=== PATIENT | female | born 1960 | race Caucasian/White ===

== ENCOUNTER 2017-07-30 17:20 | Emergency (ER) | payer OTHER ==
[~2017-07-30] VITALS: Ht 157.5 cm; Wt 72.6 kg
[~2017-07-30 17:20] MED LIST: ADVAIR 250-501 EACH INH; BUPROPION HYDR150 M1 PO; BUPROPION XL300 M1 PO; CARBIDOPA-LEVO1 EAC7 PO; CRESTOR40 MG PO; DILAUDID2 MG PO; DULOXETINE30 MG PO; DULOXETINE60 MG PO; ESCITALOPRAM OX20 MG PO; FENOFIBRIC ACI135 MG PO; FLUTICASON0.05 MG/A2 NASB; FLUTICASONE PRO16 GM NASB; FOLIC ACID 1 MG PO; GLIMEPIRIDE4 M1 PO; LEVSIN0.125 M1 PO; LOSARTAN POTASS50 M1 PO; LOSARTAN POTASS50 MG PO; METFORMIN ER500 MG PO; METOPROLOL SUC100 M2 PO; METOPROLOL SUC100 MG PO; MODAFINIL200 M1 PO; NORETHINDRONE AC5 MG PO; PERCOCET 325 MG1 TA2 PO; PHENERGAN12.5 M1 PO; PROVENTIL0.09 MG/A1 INH; TOPIRAMATE25 MG PO; TOPIRAMATE50 M1 PO; TRULICITY1.5 MG/0.5 SC; VICTOZA6 MG/ML SC; VIVELLE-DOT1 EAC2 TOP; ZOFRAN ODT4 M1 SL
--- NOTE | 2017-07-30 19:33 | ULTRASOUND REPORT ---
EXAMINATION: US TRIPLEX LOWER EXTREMITY, RIGHT CLINICAL INFORMATION: Right calf pain and swelling. COMPARISON: None. TECHNIQUE: Color-flow triplex imaging with spectral analysis and compression Doppler were performed on the lower extremity. FINDINGS: Respiratory variation, normal compression and augmented flow are noted throughout the lower extremity. The visualized common femoral vein, superficial femoral vein, profunda femoral vein, popliteal vein and midcalf peroneal and posterior tibial venous segments show no evidence of deep venous thrombosis. There is a collection of fluid in the midcalf which measures at least 8 x 8 x 1 cm. This may correspond to fluid leaking from a Steen's cyst. A 2 x 2.5 x 0.6 cm echogenic focus within this may correspond to synovitis. Alternatively, this could correspond to a hematoma with congealed blood products. IMPRESSION: No evidence of deep venous thrombosis involving the lower extremity. Complex superficial collection in the left midcalf. This appearance is most commonly the result of fluid leaking from a Steen's cyst. Alternatively, this could correspond to a hematoma with a focus of congealed blood products. Infection is unlikely without significant surrounding hyperemia. If this collection does not improve on followup, consider ultrasound-guided aspiration or MRI tibia and fibula with and without contrast for further evaluation.
[2017-07-30 20:32] VITALS: BP 123/75
--- NOTE | 2017-07-30 20:41 | ED UPPER/LOWER EXTREMITY COMPL ---
History of Present Illness General Chief Complaint: Lower Extremity Problems Stated Complaint: SENT BY URGENT CARE FOR U/S TO R/O DVT Source: patient, old records Exam Limitations: no limitations Vital Signs & Intake/Output Vital Signs & Intake/Output Vital Signs Date Time Temp Pulse Resp B/P B/P Pulse O2 O2 Flow FiO2 Mean Ox Delivery Rate 07/30 2032 97.7 68 20 123/75 100 Room Air 07/304 98.9 79 15 145/84 99 Room Air Room Air Allergies Coded Allergies: codeine (Intermediate, NAUSEA 07/30/17) Penicillins (HIVES 07/30/17) quinapril (TONGUE SWELLING 07/30/17) Reconcile Medications Bupropion HCl (Bupropion XL) 300 MG TAB.ER.24H 1 TAB PO DAILY MENTAL HEALTH ( Reported) Carbidopa/Levodopa (Carbidopa-Levodopa 25-100 Tab) 25 MG-100 MG TABLET 3 TAB PO QHS RLS (Reported) Dulaglutide (Trulicity) (Unknown Strength) PEN.INJCTR (Unknown Dose) SC QSUN DM (Reported) Escitalopram Oxalate 20 MG TABLET 1 TAB PO DAILY MENTAL HEALTH (Reported) Estradiol (Vivelle-Dot) 0.1 MG/24 HOUR PATCH.TDSW 1 VANDANA TOP QWEDSUN HRT ( Reported) Fluticasone Propionate 50 MCG/ACTUATION SPRAY.SUSP 1 SPRAY NASB DAILY ALLERGIES (Reported) Fluticasone/Salmeterol (Advair 250-50 Diskus) 250 MCG-50 MCG/DOSE BLST.W.DEV 1 PUF INH BID ASTHMA (Reported) Glimepiride 4 MG TABLET 1 TAB PO DAILY AC DM (Reported) Hyoscyamine (Levsin) 0.125 MG TABLET 1 TAB PO Q4 PRN abdominal spasms Losartan Potassium 50 MG TABLET 1 TAB PO DAILY BP (Reported) Metoprolol Succinate 100 MG TAB.ER.24H 1 TAB PO DAILY HEART/BP (Reported) Modafinil 200 MG TABLET 1 TAB PO BID DAYTIME SLEEPINESS (Reported) Ondansetron (Zofran Odt) 4 MG TAB.RAPDIS 1 TAB SL TID PRN nausea Topiramate 50 MG TABLET 3 TAB PO DAILY HOT FLASHES (Reported) Triage Note: PT SENT TO ED BY PHYSICIAN ONE FOR R/O DVT TO R CALF AREA. PAIN IS WORSE WITH AMBULATION. REPORTS CRAMPING FEELING X 1 WEEK WITH SHARP PAIN TODAY. Triage Nurses Notes Reviewed? yes Onset: Abrupt Duration: week(s): (1), constant Timing: recent history Severity: moderate Severity Numbers: 5 Pain/Injury Location: Left: Leg. Method of Injury: unknown Modifying Factors: Worsens With: movement. Associated Symptoms: none HPI: 57-year-old female history of hypertension diabetes presents saying for the past 1 week she has had a cramping pain to her right calf. She denies any known injury or trauma however states the pain is worse with ambulation. She denies any hip knee or ankle pain no numbness or tingling. She denies noting any bruising to her skin. No shortness of breath no left leg pain. No modifying factors or associated symptoms otherwise.she denies any swelling to leg. no rashes. Past History Travel History Traveled to [place] past 21 day No Medical History Any Pertinent Medical History? see below for history Cardiovascular: hypertension Endocrine: diabetes Surgical History Surgical History: non-contributory Psychosocial History What is your primary language Moh[place] Tobacco Use: Never used ETOH Use: denies use Illicit Drug Use: denies illicit drug use Family History Hx Contributory? No Review of Systems Review of Systems Constitutional: Reports: see HPI. Comments Review of systems: See HPI, All other systems negative. Constitutional, no chills no fever HEENT: no sore throat no congestion Cardiovascular: No chest pain Skin: no rashes, no change in skin Respiratory: No dyspnea no cough no sputum GI: No nausea no vomiting, Muscle skeletal: No joint pain, no back pain, no neck pain, Neurologic: , no headache Heme/endocrine: No bruising Physical Exam Physical Exam General Appearance: well developed/nourished, no apparent distress, alert, awake Comments: Well-developed well-nourished patient in no apparent distress. HEENT: Atraumatic, extraocular motion intact Neck: Supple, FROM Back: FROM Respiratory: No respiratory distress. Patient speaking in full complete sentences. Upper Extremities: full range of motion Hip/Pelvis: Atraumatic/Stable. FROM. Knee: Atraumatic/stable. FROM. No joint swelling, no effusion. No laxity. No pain with ROM Leg: Atraumatic. NEG HOMANS, Nontender. No edema, 5 out of 5 strength in the lower extremity, normal dorsiflexion of great toe bilaterally, gross sensation is intact, patellar tendon reflex 2+ bilaterally. Ankle/Foot: Atraumatic/stable. Skin intact. FROM. No swelling, no effusion. No laxity on exam Pulses: Normal/equal DP/PT pulses bilaterally. Brisk cap refill Neuro: awake, alert, and oriented to person, place and time. There were no obvious focal neurologic abnormalities. Skin: Warm & dry;No appreciable rash on exposed skin Psych: Mood affect normal, normal memory normal judgment. Progress Differential Diagnosis: DVT, sprain, tendon injury, BAKERS CYST, HEMATOMA Plan of Care: I discussed with the patient at length all of their results. I had an extensive conversation regarding need for close follow up with their primary care physician this week as well as return precautions. I answered all of their questions, they feel comfortable with the plan and follow-up care. Diagnostic Imaging: Viewed by Me: Ultrasound. Discussed w/RAD: Ultrasound. Radiology Impression: PATIENT: ANDRE POND PRESENT AGE: 57 PATIENT ACCOUNT NO: [id number] : 61 LOCATION: [facility] ORDERING PHYSICIAN: James Salcedo MD SERVICE DATE: 07/30/17 EXAM TYPE: US - US-DUPLEX VENOUS EXTREM UNI EXAMINATION: US TRIPLEX LOWER EXTREMITY, RIGHT CLINICAL INFORMATION: Right calf pain and swelling. COMPARISON: None. TECHNIQUE: Color-flow triplex imaging with spectral analysis and compression Doppler were performed on the lower extremity. FINDINGS: Respiratory variation, normal compression and augmented flow are noted throughout the lower extremity. The visualized common femoral vein, superficial femoral vein, profunda femoral vein, popliteal vein and midcalf peroneal and posterior tibial venous segments show no evidence of deep venous thrombosis. There is a collection of fluid in the midcalf which measures at least 8 x 8 x 1 cm. This may correspond to fluid leaking from a Steen's cyst. A 2 x 2.5 x 0.6 cm echogenic focus within this may correspond to synovitis. Alternatively, this could correspond to a hematoma with congealed blood products. IMPRESSION: No evidence of deep venous thrombosis involving the lower extremity. Complex superficial collection in the left midcalf. This appearance is most commonly the result of fluid leaking from a Steen's cyst. Alternatively, this could correspond to a hematoma with a focus of congealed blood products. Infection is unlikely without significant surrounding hyperemia. If this collection does not improve on followup, consider ultrasound- guided aspiration or MRI tibia and fibula with and without contrast for further evaluation. DICTATED BY: Olvin Mata MD DATE/TIME DICTATED:07/30/171914 LEGISLATIVE ASSISTANT:JOSE DATE/TIME TRANSCRIBED:07/30/171914 CONFIDENTIAL, DO NOT COPY WITHOUT APPROPRIATE AUTHORIZATION. <Electronically signed in Other Vendor System> SIGNED BY: Olvin Mata MD 07/30/171932 Departure Departure Time of Disposition: 2052 Disposition: HOME OR SELF CARE Condition: Stable Clinical Impression Primary Impression: Ruptured Bakers cyst Referrals: Jewel CARDOZO,Tadeo Echeverria (PCP/Family) Additional Instructions: Rest heating pads Tylenol Motrin for pain keep leg elevated. Follow-up with your primary care physician, return to the emergency room with any concerns. Departure Forms: Customer Survey General Discharge Information
== END 2017-07-30 20:59 ==
LOC: ERH 17:20
DX: M66.0 Rupture of popliteal cyst (principal)